=== PATIENT | female | born 1930 | race Caucasian/White ===

== ENCOUNTER 2017-09-26 12:45 | Emergency (ER) | payer MEDICARE, OTHER ==
[~2017-09-26] VITALS: Ht 157.5 cm; Wt 61.2 kg
[~2017-09-26 12:45] MED LIST: ALPRAZOLAM0.5 MG PO; ARICEPT10 MG ORAL; ATELVIA35 MG ORAL; ATROVENT HFA12.9 GM IH; DOCUSATE SODIU250 MG ORAL; ECOTRIN81 MG PO; GLYCOLAX225 GM PO; LIDODERM700 M1 TOPIC; LOSARTAN POTASS50 MG ORAL; MOBIC15 MG ORAL; NEXIUM40 M2 ORAL; NORCO 5-325 TA1 EACH ORAL; PREMARIN0.625 MG ORAL; SIMVASTATIN40 MG ORAL; SINGULAIR10 MG ORAL; SYNTHROID150 MCG ORAL; TRAZODONE HCL100 MG ORAL; XOPENEX HFA15 GM IH; ZANTAC150 MG ORAL; ZOFRAN4 MG ORAL
[2017-09-26] MEDS ORDERED: Methocarbamol 750mg tab ORAL ONE (13:15)
[2017-09-26] MEDS ORDERED: Tylenol #3 tab (300mg/30mg) ORAL ONE (13:15)
[2017-09-26 13:47] VITALS: BP 124/60
[2017-09-26] MEDS ORDERED: ROBAXIN-750750 MG PO (14:21)
[2017-09-26] MEDS ORDERED: ACETAMINOPHEN-1 EAC1 ORAL (14:21)
[2017-09-26 14:26] VITALS: BP 120/45
--- NOTE | 2017-09-27 07:26 | Emergency Room Report ---
History of Present Illness General Chief Complaint: Neck Pain Source: Patient, Medical Record Present Illness HPI 87 yo F presents to ED c/o neck pain. son at bedside, states that patient slept on the couch a few days ago and woke up with neck pain. pain is sharp, left sided, 8/10, nonradiating. patient c/o stiffness of her neck. denies any headache. denies any fevers or chills. no other aggravating or relieving factors. denies any other associated symptoms Allergies: Coded Allergies: NSAIDS (NON-STEROIDAL ANTI-INFLAMMA (Verified Allergy, Unknown, 09/26/17) Patient History Past Medical History: DM, HTN, dementia Pertinent Family History: none Social History: Denies: smoking, alcohol use, drug use Now: No Immunizations: UTD Reviewed Nursing Documentation: PMH: Agreed; PSxH: Agreed Nursing Documentation-PMH Past Medical History: No History, Except For Hx Cardiac Problems: Yes - High Cholesterol, Hypothyroidism Hx Hypertension: Yes Hx Cancer: No Hx Gastrointestinal Problems: Yes Hx Neurological Problems: Yes - Dementia Hx Dementia: Yes Review of Systems All Other Systems: negative except mentioned in HPI Physical Exam Vital Signs Date Time Temp Pulse Resp B/P (MAP) Pulse Ox O2 Delivery O2 Flow Rate FiO2 09/26/17 12:53 98.3 54 18 124/60 95 Room Air 98.2 Sp02 EP Interpretation: reviewed, normal General Appearance: no apparent distress, alert, GCS 15, non-toxic Head: normocephalic Eyes: bilateral eye normal inspection, bilateral eye PERRL ENT: hearing grossly normal, normal pharynx, no angioedema, normal voice Neck: no bony tend, tender lateral Respiratory: normal inspection Cardiovascular #1: normal inspection Gastrointestinal: normal inspection Rectal: deferred Genitourinary: no CVA tenderness Musculoskeletal: normal inspection Neurologic: alert, oriented x3, responsive, motor strength/tone normal, sensory intact, speech normal Psychiatric: normal inspection Skin: normal inspection Lymphatic: normal inspection Medical Decision Making Diagnostic Impression: Primary Impression: Strain, cervical Qualified Codes: S16.1XXA - Strain of muscle, fascia and tendon at neck level , initial encounter ER Course Hospital Course 87-year-old female presents ED complaining of left-sided neck pain after sleeping on couch Differential diagnoses include: neck strain, shoulder strain, dislocation/ fracture Clinical course Patient placed on stretcher. After initial history and physical exam reveals an elderly female in no acute distress. On exam there is no midline neck tenderness or shoulder tenderness. there is some limited mobility. there is some mild lateral neck tenderness no focal neurological deficits. suspicision for acute neurological injury is low I ordered tylenol #3/robaxin in ED. Upon reassessment pain is improved. mobility in neck improved Diagnosis - neck strain Stable and discharged to home with prescription for treatment Tylenol #3, robaxin. Followup with PMD. Return to ED if symptoms recur or worsen Last Vital Signs Date Time Temp Pulse Resp B/P (MAP) Pulse Ox O2 Delivery O2 Flow Rate FiO2 09/26/17 14:26 50 20 120/45 95 Room Air 09/26/17 13:47 98.9 98.9 Status: improved Disposition: HOME, SELF-CARE Condition: Stable Scripts Methocarbamol* (ROBAXIN-750*) 750 Mg Tablet 750 MG PO TID, #21 TAB 0 Refills Prov: Dagoberto Schulz MD 09/26/17 Acetaminophen With Codeine (T#3) (TYLENOL #3 TAB*) Y Tab 1 TAB ORAL Q8H PRN for For Pain, #20 TAB Prov: Dagoberto Schulz MD 09/26/17 Patient Instructions: Cervical Sprain, [id number] Dagoberto Schulz MD September 27, 2017 07:26
== END 2017-09-26 14:29 | disposition home or self-care (01) ==
LOC: EMR 13:17
DX: S16.1XXA Strain of muscle, fascia and tendon at neck level, initial encounter (principal); X58.XXXA Exposure to other specified factors, initial encounter; Y92.89 Other specified places as the place of occurrence of the external cause; I10 Essential (primary) hypertension; E03.9 Hypothyroidism, unspecified
CPT/HCPCS: 99284